=== PATIENT | female | born 1925 | race Caucasian/White ===

== ENCOUNTER → 2016-04-22 | Outpatient (CLI) | payer MEDICARE ==
[~2016-04-22] MED LIST: ALDACTONE 50MG50 MG PO; ALLOPURINOL100 MG PO; ASPIRIN 81MG TA81 MG PO; BACTROBAN23 TP; CLARINEX5 MG PO; CLARITIN 10MG T10 MG PO; COUMADIN2.5 MG PO; CYMBALTA60 MG PO; DEMADEX20 M1 PO; DIAZEPAM5 M1 PO; DIAZEPAM5 MG PO; FENTANYL TR50 MCG/HR TD; FLONASE 50 MCG16 GM; FUROSEMIDE 20MG20 MG PO; HYDROCODONE1 TABLET PO; IPRATROPIUM BROM3 M1 IH; L-LYSINE500 MG PO; LASIX 40MG. TAB40 MG PO; LEVAQUIN500 MG PO; LEVOTHYROXINE0.1 MG PO; LOVENOX80 MG/0.8 SC; LYRICA25 MG PO; METOLAZONE 2.52.5 MG PO; METOLAZONE2.5 MG PO; METOPROLOL SUCC50 M1 PO; METOPROLOL TAR100 MG PO; METOPROLOL TART50 MG PO; MICARDIS80 MG PO; MICRO-K 10 MEQ10 MEQ PO; MOBIC7.5 MG PO; MOVANTIK25 MG PO; MULTIVITAMIN1 TA1 PO; NORVASC 5MG. TAB5 MG PO; OMNICEF 300 MG300 MG PO; PAROXETINE HCL20 MG PO; POTASSIUM CHLO20 ME2 PO; PRILOSEC40 MG PO; RELAFEN 750MG750 MG PO; RELAFEN750 MG OR; RELAFEN750 MG PO; TIKOSYN0.25 MG PO; VITAMIN C500 M1 PO; VITAMIN D1000 IU PO; WARFARIN SODIU2.5 MG PO; ZAROXOLYN2.5 MG PO; ZITHROMAX Z-PA250 M2 PO; ZOCOR40 MG PO
[2016-04-22 13:34] LABS: HEMOGLOBIN 13.1 g/dL (12.2-16.2); LYMPH # 1.1 K/mm3 (0.7-4.5); LYMPH % 24.6 % (10-50.0)
[2016-04-22 14:47] LABS: BUN 67 mg/dL (7-18)
[2016-04-22 14:57] LABS: GFR (ESTIMATED) 35 ML/MIN (59-)
== END ==
LOC: LAB 13:19
PROVIDERS: Nurse Practitioner Family
DX: I50.9 Heart failure, unspecified (principal); N18.3 Chronic kidney disease, stage 3 (moderate); E03.9 Hypothyroidism, unspecified; M10.9 Gout, unspecified